=== PATIENT | female | born 1970 | race African-American/Black ===

== ENCOUNTER 2022-03-02 13:38 | Emergency (ER) | payer BC, OTHER ==
[~2022-03-02] VITALS: Ht 160 cm; Wt 73.0 kg
== END 2022-03-02 15:22 | disposition home or self-care (01) ==
LOC: FSED 13:55
DX: J06.9 Acute upper respiratory infection, unspecified (principal); S83.91XA Sprain of unspecified site of right knee, initial encounter; W01.0XXA Fall on same level from slipping, tripping and stumbling without subsequent striking against object, initial encounter; Y93.01 Activity, walking, marching and hiking
CPT/HCPCS: 99283

== ENCOUNTER 2022-09-05 18:08 | Emergency (ER) | payer BC ==
[~2022-09-05] VITALS: Ht 160 cm; Wt 78.1 kg
[2022-09-05] MEDS ORDERED: CRESTOR10 MG PO (18:44)
[2022-09-05] MEDS ORDERED: FAMOTIDINE 20 MG/2 ML VIAL IV STA (18:47)
[2022-09-05] MEDS ORDERED: ACETAMINOPHEN 325 MG TAB PO ONE (19:00)
[2022-09-05] MEDS ORDERED: ACETAMINOPHEN 325 MG TAB ONE (19:34)
[2022-09-05] MEDS ORDERED: FAMOTIDINE 20 MG/2 ML VIAL IV ONE (19:34)
[2022-09-05 19:46] LABS: CREATINE KINASE 201 IU/L (29-168)
[2022-09-05] MEDS ORDERED: SODIUM CHLORIDE 0.9% 1000ML 1,000 ML IV SCH (20:15)
[2022-09-05] MEDS ORDERED: SODIUM CHLORIDE 0.9% 1000ML 1,000 ML ONE (20:23)
[2022-09-05] MEDS ORDERED: FAMOTIDINE40 MG PO (21:11)
[2022-09-05 21:20] VITALS: BP 142/72; PULSE 50; RESP 18; TEMP 97.5; O2SAT 100
== END 2022-09-05 21:20 | disposition home or self-care (01) ==
LOC: FSED 18:17
DX: R07.9 Chest pain, unspecified (principal); K21.9 Gastro-esophageal reflux disease without esophagitis; R51.9 Headache, unspecified; M79.602 Pain in left arm; R20.0 Anesthesia of skin; M79.662 Pain in left lower leg; R79.89 Other specified abnormal findings of blood chemistry; E78.5 Hyperlipidemia, unspecified; Z79.899 Other long term (current) drug therapy
CPT/HCPCS: 36415; 70450; 71046; 80053; 81003; 82550; 82553; 84484; 85025; 93005; 99284; J7030